=== PATIENT | female | born 1970 | race Caucasian/White ===

== ENCOUNTER → 2019-06-21 | Outpatient (CLI) | payer BC ==
--- NOTE | 2019-06-21 09:33 | MM ---
Reason for exam: clinical finding. History: Family history of breast cancer in aunt. Physical Findings: Nurse Summary: 10cm nodule in the right breast at 10-2 o'clock (nurse TM). MG 3D Diag Mammo W/Cad QUINCY Bilateral CC and MLO view(s) were taken. The breast tissue is heterogeneously dense. This may lower the sensitivity of mammography. There are heterogeneous calcifications of the upper central right breast spanning 3.1cm associated with a dense focal asymmetry at the palpable at middle posterior depth. No suspicious abnormality in the left breast. These results were verbally communicated with the patient and result sheet given to the patient on 06/21/19. ASSESSMENT: Incomplete: need additional imaging evaluation, BI-RAD 0 RECOMMENDATION: Ultrasound of both breasts. (right upper, left pain)
--- NOTE | 2019-06-21 09:38 | USB ---
History: Family history of breast cancer in aunt. US Breast Limited BILAT Right limited breast ultrasound including focal area of concern, retroareolar and axilla demonstrates a 0.6 x 0.4 x 0.3cm oval, lobular, cystic lesion at 12 o'clock, a 0.4 x 0.4 x 0.2cm oval, cystic lesion at 12 o'clock, a 2.2 x 1.2 x 3.8cm taller than wide, irregular, hypoechoic lesion at 12:30 BB, ill defined given surrounding dense tissue, better seen on mammogram, stereotactic core biopsy recommended, a 0.6 x 0.4 x 0.4cm oval, cystic lesion at 1 o'clock, a 0.4 x 0.5 x 0.2cm oval, cystic lesion at 2 o'clock, a 0.8 x 0.47 x 0.5cm oval, cystic cluster at 9 o'clock and a 1.5 x 1.3 x 0.8cm axilla node. Left limited breast ultrasound including focal area of concern, retroareolar and axilla demonstrates duct ectasia at 9 o'clock and a 0.4 x 0.4 x 0.3cm oval, cystic lesion at 11 o'clock. These results were verbally communicated with the patient and result sheet given to the patient on 06/21/19. ASSESSMENT: Highly suggestive of malignancy, BI-RAD 5 RECOMMENDATION: Stereotactic core biopsy of the right breast. Called Dr. Doyle's office with mammographic findings and has scheduled an appointment for the patient for 07/18/19 at 4:[address] French. Biopsy scheduled for 07/05/19 at 10:20. PRELIMINARY REPORT CALLED AND FAXED TO DR. FRENCH ON 06/21/19.
== END | disposition home or self-care (01) ==
LOC: RADMAMWWP 06:59
PROVIDERS: ATTEND Obstetrics & Gynecology
DX: N64.4 Mastodynia (principal); N63.12 Unspecified lump in the right breast, upper inner quadrant; R92.8 Other abnormal and inconclusive findings on diagnostic imaging of breast
CPT/HCPCS: 77062; 77066

== ENCOUNTER → 2019-07-06 | Outpatient (CLI) | payer BC ==
--- NOTE | 2019-07-23 13:00 | BMR ---
EXAMINATION TYPE: MR breast BILAT wo/w con DATE OF EXAM: 07/10/2019 COMPARISON: Outside right breast biopsy dated 06/28/2019 and right breast ultrasound as well as mammogr am dated 06/21/2019. HISTORY: Rt breast mass 10-12 o'clock TECHNIQUE: A series of fat and water weighted images in the long and short axis views of both breasts are obtained in conjunction with dynamic contrast MRI with subtraction technique. The patient was i njected with 5 mL intravenous Gadavist gadolinium contrast. Three-dimensional and additional postpr ocessing imaging is created on independent workstation and reviewed during official interpretation of this study. FINDINGS: The breasts are composed of heterogenous fibroglandular tissue with mild background parench ymal enhancement. There is abnormal both masslike and nonmasslike clumped enhancement within the right breast. Suscepti bility artifact from the biopsy-proven invasive ductal carcinoma the right breast is seen at the most cranial aspect of this mass. This mass measures 6.1 x 4.0 cm in transverse by anterior posterior dim ension involving the upper outer quadrant and upper inner quadrant on postcontrast first contrast pas sed series 701 image 338 axial fat sat T1 postcontrast sequence and extends inferiorly below the leve l of the nipple centrally to involve the lower outer quadrant and to a lesser degree the lower inner quadrant. There is clumped nonmass enhancement emanating anteriorly from the inferior aspect of this mass on image 302 measuring a total anterior posterior dimension of 5.1 cm. There is clumped posterio r enhancement of the upper outer quadrant extending 1.1 cm posterior to the primary index mass. There is no suspicious internal mammary adenopathy bilaterally however abnormal right axillary adenop athy is seen with a lymph node lateral to the pectoralis major on postcontrast image 380 measuring 1. 0 cm in short axis and lymph node just above this appears lobular in appearance on image 428 also lina suring 1.0 cm in short axis. No suspicious left axillary adenopathy. There is no suspicious mass nor nonmass enhancement in the left breast. Foci of background enhancemen t are appreciated. Scattered nonenhancing subcentimeter benign right breast cysts are also seen. IMPRESSION: BI-RADS [id number]-rdrqck malignancy. 1. Findings are highly suspicious for multicentric disease within the right breast with the largest t ransverse and anterior posterior dimensions measuring 6.1 x 4.0 cm (involvement of all 4 quadrants). Either second ultrasound-guided biopsy could be performed of the upper inner quadrant margin to patho logically prove multicentric disease or MRI guided biopsy could be performed pathologically prove ext ent of disease. 2. Suspicious right axillary adenopathy with at least 2 abnormal appearing lymph nodes adjacent to on e another at the lateral aspect of the pectoralis major inferior to the axillary artery and vein. 3. No MR evidence of malignancy within the left breast.
== END | disposition home or self-care (01) ==
LOC: RADMRIMAIN 17:39
PROVIDERS: ATTEND Surgery
DX: C50.911 Malignant neoplasm of unspecified site of right female breast (principal)
CPT/HCPCS: 77049; C8937; A9585

== ENCOUNTER → 2019-07-10 | Outpatient (CLI) | payer BC ==
--- NOTE | 2019-07-11 11:01 | ECHOF ---
Referral Reason:Z01.818 pre-chemo C50.111 breast cancer MEASUREMENTS -------- HEIGHT: 147.3 cm WEIGHT: 49.9 kg BP: RVIDd: 2.7 cm (< 3.3) IVSd: 0.9 cm (0.6 - 1.1) LVIDd: 4.0 cm (3.9 - 5.3) LVPWd: 0.8 cm (0.6 - 1.1) IVSs: 1.2 cm LVIDs: 2.5 cm LVPWs: 1.3 cm LAESV Index (A-L): 19.50 ml/m Ao Diam: 2.8 cm (2.0 - 3.7) AV Cusp: 1.9 cm (1.5 - 2.6) MV EXCURSION: 15.098 mm (> 18.000) MV EF SLOPE: 121 mm/s (70 - 150) EPSS: 0.1 cm MV E Fazal: 0.82 m/s MV DecT: 260 ms MV A Fazal: 0.57 m/s MV E/A Ratio: 1.42 FINDINGS -------- Sinus rhythm. This was a technically good study. The left ventricular size is normal. Left ventricular wall thickness is normal. There is normal g lobal left ventricular contractility. Overall left ventricular systolic function is normal with, an EF between 60 - 65 %. The diastolic filling pattern is normal for the age of the patient 7.92. The right ventricle is normal in size. Normal LA size by volume 22+/-6 ml/m2. The right atrial size is normal. Interatrial and interventricular septum intact. The aortic valve is trileaflet and appears structurally normal. There is no evidence of aortic regu rgitation. There is no evidence of aortic stenosis. No mitral regurgitation. Mild tricuspid regurgitation present. There is no evidence of pulmonary hypertension. The right v entricular systolic pressure, as measured by Doppler, is {RVSP}. Trace/mild (physiologic) pulmonic regurgitation. The aortic root size is normal. Normal inferior vena cava with normal inspiratory collapse consistent with estimated right atrial pre ssure of 5 mmHg. There is no pericardial effusion. CONCLUSIONS -------- 1. Sinus rhythm. 2. This was a technically good study. 3. The left ventricular size is normal. 4. Left ventricular wall thickness is normal. 5. There is normal global left ventricular contractility. 6. Overall left ventricular systolic function is normal with, an EF between 60 - 65 %. 7. The diastolic filling pattern is normal for the age of the patient 7.92 8. The right ventricle is normal in size. 9. Normal LA size by volume 22+/-6 ml/m2. 10. The right atrial size is normal. 11. Interatrial and interventricular septum intact. 12. The aortic valve is trileaflet and appears structurally normal. 13. There is no evidence of aortic regurgitation. 14. There is no evidence of aortic stenosis. 15. No mitral regurgitation. 16. Mild tricuspid regurgitation present. 17. There is no evidence of pulmonary hypertension. 18. The right ventricular systolic pressure, as measured by Doppler, is {RVSP}. 19. Trace/mild (physiologic) pulmonic regurgitation. 20. The aortic root size is normal. 21. Normal inferior vena cava with normal inspiratory collapse consistent with estimated right atrial pressure of 5 mmHg. 22. There is no pericardial effusion. SCOOP FILLER: Sangeeta Schroeder RDCS
== END | disposition home or self-care (01) ==
LOC: RADECHMAIN 15:02
PROVIDERS: ATTEND Internal Medicine Hematology & Oncology
DX: I07.1 Rheumatic tricuspid insufficiency (principal); C50.111 Malignant neoplasm of central portion of right female breast
CPT/HCPCS: 93306

== ENCOUNTER → 2019-11-05 | Outpatient (CLI) | payer BC ==
[2019-11-05 10:10] LABS: African American GFR (CKD) >90 (>60 ml/min/1.73 sqM); Blood Urea Nitrogen 16 mg/dL (7-17); Non-African American GFR(CKD) >90 (>60 ml/min/1.73 sqM)
--- NOTE | 2019-11-05 12:18 | CT ---
EXAMINATION TYPE: CT ChestAbdPelvis w con DATE OF EXAM: 11/05/2019 COMPARISON: MRI bilateral breasts July 06, 2019. HISTORY: History of right-sided breast cancer diagnosed earlier this year. CT DLP: 409.3 mGycm. Automated Exposure Control for Dose Reduction was Utilized. CONTRAST: CT scan of the thorax, abdomen and pelvis is performed with IV Contrast, patient injected with 100 mL of Isovue 300. FINDINGS: LUNGS: The lungs are grossly clear, there is no concerning parenchymal mass or nodule identified. T here is no pleural effusion or pneumothorax seen. The tracheobronchial tree is patent. MEDIASTINUM: There are no greater than 1 cm hilar or mediastinal lymph nodes. No cardiomegaly or pe ricardial effusion is seen. OTHER: There is left internal jugular Mediport catheter terminating in the right atrium. Heterogeneou sly dense fibroglandular tissue in both breasts redemonstrated. Superior aspect of right breast shows more dense tissue and biopsy clip corresponding to the area of neoplasm on breast MRI. No obvious ax illary adenopathy. LIVER/GB: Somewhat contracted gallbladder. PANCREAS: No significant abnormality is seen. SPLEEN: No significant abnormality is seen. ADRENALS: No significant abnormality is seen. KIDNEYS: No significant abnormality is seen. BOWEL: No significant abnormality is seen. GENITAL ORGANS: Anteverted somewhat lobulated uterus. Possible underlying fibroids. Correlate clinica lly. LYMPH NODES: No greater than 1cm abdominal or pelvic lymph nodes are appreciated. OSSEOUS STRUCTURES: No significant abnormality is seen. OTHER: Small fat-containing umbilical hernia. IMPRESSION: Known multicentric upper right breast mass or neoplasm seen better on MRI versus CT. No metastatic malignancy identified on CT.
--- NOTE | 2019-11-05 15:00 | NM ---
EXAMINATION TYPE: NM bone scan whole body DATE OF EXAM: 11/05/2019 COMPARISON: CT same day HISTORY: 49-year-old female history of breast cancer. Patient reports all over bone pain. TECHNIQUE: Delayed whole-body scanning was performed following the injection of 21 mCi Tc 99m MDP. I mages acquired 4 hours post injection. FINDINGS: A few foci of mildly increased activity within the posterior elements of the cervical spine compatibl e with degenerative activity. No suspicious distribution of activity to suggest osseous metastatic di sease. IMPRESSION: No scintigraphic evidence for osseous metastatic disease.
== END | disposition home or self-care (01) ==
LOC: RADPROMAIN 09:24
PROVIDERS: ATTEND Internal Medicine Hematology & Oncology
DX: C50.111 Malignant neoplasm of central portion of right female breast (principal)
CPT/HCPCS: 82565; 84520; 71260; 74177; 78306; A9503; J1642; Q9967

== ENCOUNTER 2019-12-28 06:22 | Observation (INO) | payer BC ==
[2019-12-24 13:11] VITALS: BMI 22.3
[~2019-12-28 06:22] MED LIST: ACETAMINOPHEN TAB 500 MG TAB PO ONE; DEXAMETHASONE SOD PHOSPHATE 10 MG/ML 1 ML VIAL IV ONE; HEPARIN SODIUM,PORCINE 5,000 UNIT/ML 1 ML VIAL SQ ONE; LIDOCAINE 1% (10MG/ML) FOR IV START INTRADERMA PRN; ONDANSETRON 4 MG/2 ML VIAL IVP ONE; Pre Op ABX Message 1 EACH MISC MISCELLANE ONE
[2019-12-28] MEDS ORDERED: ACETAMINOPHEN TAB 500 MG TAB ONE (06:44)
[2019-12-28] MEDS ORDERED: ONDANSETRON 4 MG/2 ML VIAL ONE (06:44)
[2019-12-28] MEDS ORDERED: HEPARIN SODIUM,PORCINE 5,000 UNIT/ML 1 ML VIAL ONE (06:52)
[2019-12-28] MEDS: HEPARIN SODIUM,PORCINE 5,000 UNIT/ML 1 ML VIAL ONE ×2 (07:00→07:04)
[2019-12-28] MEDS: LACTATED RINGERS 1,000 ML IV SCH ×2 (07:03→14:41)
[2019-12-28] MEDS ORDERED: MIDAZOLAM 2 MG/2 ML VIAL IV ONE (07:04)
[2019-12-28 07:07] LABS: Basophils % (A) 1 %; Eosinophils # (A) 0.2 k/uL (0-0.7); Eosinophils % (A) 4 %; HCT 45.6 % (34.0-46.0); HGB 14.9 gm/dL (11.4-16.0); Lymphocytes # (A) 1.1 k/uL (1.0-4.8); Lymphocytes % (A) 27 %; MCH 30.5 pg (25.0-35.0); MCHC 32.6 g/dL (31.0-37.0); MCV 93.5 fL (80.0-100.0); Mean Platelet Volume 7.3; Monocytes # (A) 0.3 k/uL (0-1.0); Monocytes % (A) 7 %; Neutrophils # (A) 2.3 k/uL (1.3-7.7); Neutrophils % (A) 59 %; Platelet Count 267 k/uL (150-450); RBC 4.88 m/uL (3.80-5.40); RDW 12.4 % (11.5-15.5)
[2019-12-28] MEDS ORDERED: PHENYLEPHRINE-0.9% NACL SYG 1 MG/10 ML SYRINGE ONE (07:55)
[2019-12-28] MEDS ORDERED: PROPOFOL 10 MG/ML 20 ML VIAL IV ONE (07:55)
[2019-12-28] MEDS ORDERED: MIDAZOLAM 2 MG/2 ML VIAL ONE (07:55)
[2019-12-28] MEDS ORDERED: LIDOCAINE 1% INJ 10MG/ML (20 ML MDV) ONE (07:55)
[2019-12-28] MEDS ORDERED: fentaNYL (PF) 50 MCG/ML 2 ML AMP ONE (07:55)
[2019-12-28] MEDS ORDERED: SUCCINYLCHOLINE CHLORIDE 100 MG/5 ML SYR IV ONE (07:55)
--- NOTE | 2019-12-28 07:59 | P.GSHP ---
History of Present Illness H&P Date: 12/28/19 Chief Complaint: Right breast cancer 49-year-old female known to our service. 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 She is ER MD positive HER-2/danyel negative. MRI showed suspicious lymph nodes for metastatic disease in the right axilla as well as probable multicentric disease with the mass measuring 6.1 cm. Additional abnormalities involving all 4 quadrants were seen. Patient had genetic testing which was negative. She underwent bone scan and CT chest abdomen and pelvis which were negative. She underwent neoadjuvant chemotherapy and recently completed that course. Here today for elective right mastectomy with axillary node dissection and reconstruction. Past Medical History Past Medical History: Cancer, GERD/Reflux Additional Past Medical History / Comment(s): migraines, rt breast cancer- finished chemo September 2019 History of Any Multi-Drug Resistant Organisms: None Reported Past Surgical History: Breast Surgery Additional Past Surgical History / Comment(s): d&c, rt breast biopsy, port inserted, oral surgery Past Anesthesia/Blood Transfusion Reactions: No Reported Reaction Smoking Status: Current every day smoker - Past Family History Mother Family Medical History: No Reported History Medications and Allergies Home Medications Medication Instructions Recorded Confirmed Type Escitalopram [Lexapro] 10 mg PO 1500 12/24/19 12/28/19 History LORazepam [Ativan] 0.5 mg PO HS 12/24/19 12/28/19 History Peppermint Oil Drops 1 - 2 drop PO DIRECTED PRN 12/24/19 12/28/19 History traMADol HCL 50 mg PO Q6HR PRN 12/24/19 12/28/19 History Allergies Allergy/AdvReac Type Severity Reaction Status Date / Time No Known Allergies Allergy Verified 12/24/19 13:00 Surgical - Exam Vital Signs Temp Pulse Resp BP Pulse Ox 97 F L 70 16 148/74 98 12/28/19 07:02 12/28/19 07:02 12/28/19 07:02 12/28/19 07:02 12/28/19 07:02 Physical exam: General: Well-developed, well-nourished HEENT: Normocephalic, sclerae nonicteric Right breast: No palpable masses any longer, no adenopathy, no skin changes. Left breast: No masses, no adenopathy Abdomen: Nontender, nondistended Extremities: No edema Neuro: Alert and oriented Results - Labs 12/28/19 06:56 Assessment and Plan (1) Cancer of right breast Narrative/Plan: Patient here today again for elective right skin sparing mastectomy with axillary node dissection. Patient will have concurrent reconstruction with Dr. Mariano. Options of bilateral mastectomy were reviewed. Patient not a candidate for breast conservation in our opinion. Risks of bleeding, infection, wound formation, scarring, numbness, pain, seroma, lymphedema, nerve injury, weakness, recurrence reviewed. She understands and wishes to proceed Current Visit: No Status: Acute Code(s): C50.911 - MALIGNANT NEOPLASM OF U NSP SITE OF RIGHT FEMALE BREAST SNOMED Code(s): 975267304
--- NOTE | 2019-12-28 08:00 | P.NAPBC ---
NAPBC Queries - NAPBC Queries Was patient's case review presented at [facility] tumor board? If no, comment.: Yes Was patient's pathology reviewed at [facility]? If no, comment.: Yes Was breast conservation surgery offered? If no, comment.: No (Was discussed, multicentric disease, not a candidate) Was sentinel node biopsy offered? If no, comment.: No (Was discussed, oncology and I favor axillary node dissection given MRI find) Was diagnosis confirmed by percutaneous core biopsy? If no, comment.: Yes Is patient mastectomy patient?: Yes Was a preop referral to reconstructive surgeon offered?: Yes Clinical Stage: 3a
[2019-12-28] MEDS ORDERED: LACTATED RINGERS 1,000 ML IV ONE ×2 (08:56)
[2019-12-28] MEDS ORDERED: NALOXONE 0.4 MG/ML 1 ML VIAL IV PRN (10:20)
[2019-12-28] MEDS ORDERED: ACETAMINOPHEN TAB 325 MG TAB PO PRN (10:20)
--- NOTE | 2019-12-28 10:27 | P.OP ---
Date of Procedure: 12/28/19 Procedure(s) Performed: PREOPERATIVE DIAGNOSIS: Right breast cancer POSTOPERATIVE DIAGNOSIS: Same PROCEDURE: Somers breast mastectomy with axillary lymph node dissection SURGEON: Claude EBL: Minimal ANESTHESIA: General COMPLICATIONS: None OPERATIVE PROCEDURE: Patient was placed on the operating room table in the supine position. Using the skin marker the proposed incision sites were drawn out on the chest wall. A circular incision was made encompassing the nipple areolar complex. Flaps were raised in all directions until the chest wall was reached. Care was taken to avoid having our skin flap be too thin/ischemic. Once the chest wall was reached the breast was removed from the chest wall using electrocautery. Multiple vessels were divided using either electrocautery or the LigaSure device. Through that same circular periareolar incision we were able to address the right axilla. A formal right axillary lymph node dissection took place at this time. The deltopectoral fascia had already been incised. The course of the right axillary vein was identified. The axillary contents were swept inferiorly from that point taking care to avoid injury to the long thoracic and thoracodorsal nerves. Small vessels were ligated using the LigaSure device. No suspicious adenopathy was encountered. The area was irrigated. No bleeding was seen. At that point formal closure was passed off to Dr. Mariano. At this point he began his reconstructive surgery. DISPOSITION: Stable
[2019-12-28] MEDS: HYDROmorphone 0.5 MG/0.5 ML SYRINGE IVP PRN ×6 (11:39→20:57)
[2019-12-28] MEDS: ONDANSETRON 4 MG/2 ML VIAL IVP PRN ×2 (14:30→23:37)
[2019-12-28] MEDS: traMADol 50 MG TAB PO PRN ×2 (14:43→23:37)
[2019-12-28] MEDS ORDERED: ESCITALOPRAM 10 MG TAB PO SCH (15:30)
[2019-12-28] MEDS: LORazepam 0.5 MG TAB PO PRN (15:35)
--- NOTE | 2019-12-28 16:57 | OP ---
OPERATIVE REPORT DATE OF SURGERY: 12/28/2019. SURGEON: Yaron Mariano. PREOPERATIVE DIAGNOSIS: 1. Invasive breast cancer, right breast. 2. Acquired loss right breast. POSTOPERATIVE DIAGNOSIS: 1. Invasive breast cancer, right breast. 2. Acquired loss right breast. OPERATIVE PROCEDURE: Immediate reconstruction of right breast following mastectomy with insertion of tissue direct support staff and subsequent outpatient expansion. OPERATIVE INDICATIONS: The patient is a 49-year-old female who had a palpable breast tumor. The patient's diagnostic biopsy demonstrated invasive breast cancer. She had neoadjuvant care chemotherapy, was then referred to my care for breast reconstruction and she had plans to undergo mastectomy. The patient has elected to proceed with breast reconstruction via tissue direct support staff technique. She understands the staged nature of the surgery, required postoperative visits and potential risks and complications related to the surgery. Additionally, the patient is aware she has a high likelihood of requiring radiation therapy and this could affect her reconstruction process and add to complications. The patient requested I proceed with the surgery today. OPERATIVE PROCEDURE: The patient is seen in the preoperative area, markings made, procedure reviewed. All questions answered, including a lengthy discussion with the patient about the use of reconstructive graft with the surgery. During the preoperative planning is was mentioned that sometimes this is required, although not for all surgeries. Unfortunately, the patient's insurance carrier reviews this as experimental procedure and will not provide coverage. The patient is fully aware of this including the cost of the product in the surgical fee associated with implantation of the product should it be needed. They have requested that if I deem it necessary for her reconstruction, that I proceed with the use of the graft despite the added financial cost to them. They understand they have the right to appeal this with their insurance company and I will be available to assist with information as needed. OPERATIVE PROCEDURE SUMMARY: The patient was transferred to the operating room. She was placed in supine position following induction of general tracheal anesthesia. She was prepped and draped in the usual fashion. A surgical time-out procedure was performed. with myself and Dr. Arce our cancer surgeon. Dr. Arce and his surgical team then proceeded with the right simple mastectomy and right axillary lymph node dissection. Once these procedures were completed, I entered the surgery. The patient was under general endotracheal anesthesia in supine position. Sponge and needle counts in prior procedure were correct. The mastectomy wound was open with no active bleeding. The right breast reconstruction was initiated by identifying the pectorals major muscle where it joined the chest wall laterally with serial connective tissue divided with cautery here allowing entry into the potential plane between the pectorals major and minor muscles were bluntly developed. Medial attachment fibers of the pectorals major muscle to ribs were released with cautery and all inferior attachments to the ribs were released with cautery. Sternal attachments remained intact. Sufficient muscle coverage was not possible with the pectorals major muscle. Additional muscle tissue was recruited inferomedially, rectus abdominis muscle and fascia inferolaterally, external abdominal oblique muscle fascia and laterally serratus anterior muscle fascia were all elevated through this incision until sufficient submuscular space for reconstruction was completed. Hemostasis maintained with cautery during the dissection. Afterwards, irrigation was performed. Hemostasis was excellent. The cavity was sized. A tissue direct support staff from the [employer] was selected and opened on the field. The reference number was TEXP 110RH, the volume of 300 mL, serial #[id number]. New gloves were obtained. The device was only handled by the surgeon. After opening, it is rinsed with saline, all air extracted and 50 mL 0.9 normal saline instilled. The reconstructive graft was then inserted into the submuscular reconstructive cavity, orientation ensured under direct vision. The muscle tissue was closed over the flap. Additional 25 mL 0.9 normal saline instilled into the direct support staff. Irrigation is performed, hemostasis remained excellent. Two 19 round Kiel drains were inserted into the surgical field, one in the axillary lymph node dissection basin and the other under the mastectomy skin flaps, over the muscle flap area. Each drains brought a separate stab incision right anterior lower chest wall and sutured in place with 2-0 Prolene. Drains were cut to appropriate length. The mastectomy incision had been performed through a circumareolar approach. The closure was now completed by placing a deep dermal running 2-0 Prolene pursestring, followed by finer approximation. The deep dermis using interrupted 4-0 Monocryl. Surgical field was then cleansed with saline dried and postoperative bandages were placed using 4x4s, secured with 3 Medipore tape. The drains were connected to bulb suction and patent. The patient was then awakened from anesthetic, extubated, transferred to recovery room in good condition with stable vital signs. ESTIMATED BLOOD LOSS: 50 mL. There were no complications. MMODL / IJN: [id number] /
[2019-12-28] MEDS: DOCUSATE 100 MG CAP PO SCH (20:47)
[2019-12-28] MEDS: FLUTICASONE 50MCG/SPRAY NASAL 16GM EA NOSTRIL SCH (20:48)
[2019-12-28] MEDS: HEPARIN SODIUM,PORCINE 5,000 UNIT/ML 1 ML VIAL SQ SCH (20:49)
[2019-12-29] MEDS: HYDROmorphone 0.5 MG/0.5 ML SYRINGE IVP PRN ×5 (01:15→20:57)
[2019-12-29] MEDS: traMADol 50 MG TAB PO PRN (06:14)
[2019-12-29] MEDS: ONDANSETRON 4 MG/2 ML VIAL IVP PRN (07:34)
[2019-12-29] MEDS: PANTOPRAZOLE 40 MG/10 ML VIAL IV SCH (09:06)
[2019-12-29] MEDS: HEPARIN SODIUM,PORCINE 5,000 UNIT/ML 1 ML VIAL SQ SCH ×2 (09:07→20:56)
[2019-12-29] MEDS: DOCUSATE 100 MG CAP PO SCH ×3 (09:08→20:56)
[2019-12-29] MEDS ORDERED: BACITRACIN OINT 1 EACH PACKET TOPICAL ONE (11:07)
--- NOTE | 2019-12-29 11:07 | P.PN ---
Subjective Progress Note Date: 12/29/19 Principal diagnosis: Right breast cancer Patient doing well today. Pain is improving. Some nausea. Tolerating diet. Drain output is serosanguineous. Objective - Vital Signs Vital signs: Vital Signs Temp 98.4 F 12/29/19 07:32 Pulse 89 12/29/19 07:32 Resp 18 12/29/19 07:32 BP 101/56 12/29/19 07:32 Pulse Ox 95 12/29/19 07:32 Intake & Output 12/28/19 12/29/19 12/29/19 18:59 06:59 18:59 Intake Total 1850 2000 Output Total 480 2360 1110 Balance 1370 -360 -1110 Weight 43.8 kg Intake: IV 1850 Intake, IV Titration 1000 Amount Lactated Ringers 1,000 ml 1000 @ 0 mls/hr IV .[facility] Rx#:[id number] Oral 1000 Output: Drainage 55 160 60 Drain #1 40 90 30 Drain #2 15 70 30 Urine 375 2200 1050 Estimated Blood Loss 50 Other: Voiding Method Toilet - Exam Right mastectomy incision clean and dry without ischemia, no hematoma, mild tenderness - Labs CBC & Chem 7: 12/28/19 06:56 Assessment and Plan (1) Cancer of right breast Narrative/Plan: Patient doing well at this time. Add Toradol for pain control. Change dressings. Current Visit: No Status: Acute Code(s): C50.911 - MALIGNANT NEOPLASM OF UNSP SITE OF RIGHT FEMALE BREAST SNOMED Code(s): 885000601
[2019-12-29] MEDS ORDERED: ONDANSETRON 4 MG/2 ML VIAL IVP PRN (11:08)
[2019-12-29] MEDS: KETOROLAC 30 MG/ML 1 ML VIAL IVP SCH ×3 (11:57→23:59)
[2019-12-29] MEDS ORDERED: ESCITALOPRAM 10 MG TAB PO SCH (15:00)
[2019-12-29] MEDS: LACTATED RINGERS 1,000 ML IV SCH (18:13)
[2019-12-29] MEDS: LORazepam 0.5 MG TAB PO PRN (18:26)
[2019-12-29] MEDS: FLUTICASONE 50MCG/SPRAY NASAL 16GM EA NOSTRIL SCH (20:56)
[2019-12-30 00:11] VITALS: RESP 18
[2019-12-30] MEDS: KETOROLAC 30 MG/ML 1 ML VIAL IVP SCH ×2 (06:10→11:41)
[2019-12-30] MEDS: HEPARIN SODIUM,PORCINE 5,000 UNIT/ML 1 ML VIAL SQ SCH (08:17)
[2019-12-30] MEDS: PANTOPRAZOLE 40 MG/10 ML VIAL IV SCH (08:17)
[2019-12-30] MEDS: traMADol 50 MG TAB PO PRN (08:33)
[2019-12-30 08:49] VITALS: BP 100/66; PULSE 71; TEMP 98.6
[2019-12-30] MEDS: DOCUSATE 100 MG CAP PO SCH (09:29)
--- NOTE | 2019-12-30 11:26 | P.DS ---
Providers Date of admission: 12/28/19 22:55 Expected date of discharge: 12/30/19 Attending physician: Yaron Mariano Primary care physician: Ja Arce - Discharge Diagnosis(es) (1) Cancer of right breast Patient admitted after right mastectomy with reconstruction Tuesday. Postoperatively has done well. Pain has been the biggest issue which is being fairly well controlled currently. Her SRIKANTH drain output is serosanguineous. She would like to go home today. Incision is doing nicely. Will discharge. Follow-up with myself and plastic surgery later this week. Current Visit: No Status: Acute Plan - Discharge Summary Discharge Rx Participant: Yes New Discharge Prescriptions: No Action traMADol HCL 50 mg PO Q6HR PRN PRN Reason: Pain LORazepam [Ativan] 0.5 mg PO HS Escitalopram [Lexapro] 10 mg PO 1500 Peppermint Oil Drops 1 - 2 drop PO DIRECTED PRN PRN Reason: upset stomach Fluticasone Nasal [place] [Flonase Nasal [place]lig[place]] 1 spray EA NOSTRIL DAILY Discharge Medication List Escitalopram [Lexapro] 10 mg PO 1500 12/24/19 [History] LORazepam [Ativan] 0.5 mg PO HS 12/24/19 [History] Peppermint Oil Drops 1 - 2 drop PO DIRECTED PRN 12/24/19 [History] traMADol HCL 50 mg PO Q6HR PRN 12/24/19 [History] Fluticasone Nasal [place] [Flonase Nasal [place]lig[place]] 1 spray EA NOSTRIL DAILY 12/28/19 [History] Follow up Appointment(s)/Referral(s): Ja Arce MD [Primary Care Provider] - 3 Days (call for appt for Tuesday or Tuesday) Yaron Mariano MD [STAFF PHYSICIAN] - 1 Week [facility], [NON-STAFF] - Activity/Diet/Wound Care/Special Instructions: Regular diet as tolerated. drink fluids. Limited activity with rt arm. no heavy lifting pushing or pulling. No showers or tub baths until ok with Dr Arce. Alternate Over the counter tylenol and Motrin every [address] discussed [address] Arce. Tramadol per home as needed as discussed with Dr Arce empty drains as needed to maintain suction. see Srikanth drain care sheet. record output as directed. Call Dr Arce for any fever > 100.4, chills, increased pain not relieved with pain meds, sudden increase or concerning drainage from drains.increased redness or discolored drainage from incision site,any concerns. Last received Tramadol at 0830. Last received toradol (same family as Advil/Motrin) at
== END 2019-12-30 12:10 | disposition home or self-care (01) ==
LOC: OR 06:22 → 6PED 10:59 → OR 22:02 → 6PED 22:55
PROVIDERS: ADMIT Plastic Surgery; ATTEND Plastic Surgery
DX: C50.911 Malignant neoplasm of unspecified site of right female breast (principal); C77.3 Secondary and unspecified malignant neoplasm of axilla and upper limb lymph nodes; F17.200 Nicotine dependence, unspecified, uncomplicated; Z17.0 Estrogen receptor positive status [ER+]; K21.9 Gastro-esophageal reflux disease without esophagitis; G43.909 Migraine, unspecified, not intractable, without status migrainosus; Z92.21 Personal history of antineoplastic chemotherapy; Z79.899 Other long term (current) drug therapy
CPT/HCPCS: 81025; 85025; 88342; 88309; 19307; 19357; G0378 ×3; J2250; J1644 ×3; J1100; J0690; J2405 ×2; J2001; J3010; J1885 ×2; J2370; J0330; J2704; C9113 ×2; J1170 ×2

== ENCOUNTER 2020-11-12 09:42 | Day surgery (SDC) | payer BC ==
[2020-11-07 14:47] VITALS: BMI 20.3
[~2020-11-12 09:42] MED LIST changes: -ACETAMINOPHEN TAB 500 MG TAB PO ONE; -DEXAMETHASONE SOD PHOSPHATE 10 MG/ML 1 ML VIAL IV ONE; +DEXAMETHASONE SOD PHOSPHATE 4 MG/ML 1 ML VIAL IV ONE; -HEPARIN SODIUM,PORCINE 5,000 UNIT/ML 1 ML VIAL SQ ONE; +LACTATED RINGERS 1,000 ML IV SCH; -Pre Op ABX Message 1 EACH MISC MISCELLANE ONE; +SCOPOLAMINE 1.5MG/72HR PATCH TRANSDERM ONE
[2020-11-12 11:13] LABS: Basophils % (A) 0 %; Eosinophils # (A) 0.2 k/uL (0-0.7); Eosinophils % (A) 3 %; HCT 43.7 % (34.0-46.0); HGB 14.9 gm/dL (11.4-16.0); Lymphocytes % (A) 11 %; MCH 31.4 pg (25.0-35.0); MCV 92.3 fL (80.0-100.0); Mean Platelet Volume 6.9; Monocytes # (A) 0.3 k/uL (0-1.0); Monocytes % (A) 4 %; Neutrophils # (A) 7.2 k/uL (1.3-7.7); Neutrophils % (A) 81 %; Platelet Count 261 k/uL (150-450); RBC 4.74 m/uL (3.80-5.40); RDW 12.5 % (11.5-15.5); WBC 8.9 k/uL (3.8-10.6)
[2020-11-12] MEDS ORDERED: fentaNYL (PF) 50 MCG/ML 2 ML AMP ONE (11:52)
[2020-11-12] MEDS ORDERED: SUCCINYLCHOLINE CHLORIDE 100 MG/5 ML SYR IV ONE (11:52)
[2020-11-12] MEDS ORDERED: HYDROmorphone (PF) 1 MG/ML ONE (11:52)
[2020-11-12] MEDS ORDERED: LIDOCAINE 1% INJ 10MG/ML (20 ML MDV) ONE (11:52)
[2020-11-12] MEDS ORDERED: PROPOFOL 10 MG/ML 20 ML VIAL IV ONE (11:52)
[2020-11-12] MEDS ORDERED: MIDAZOLAM 2 MG/2 ML VIAL ONE (11:52)
[2020-11-12] MEDS ORDERED: ePHEDrine SULFATE/0.9% NACL/PF 50 MG/5 ML SYRINGE IV ONE (11:52)
[2020-11-12] MEDS ORDERED: LACTATED RINGERS 1,000 ML IV ONE (13:00)
[2020-11-12 14:01] VITALS: TEMP 98.6
[2020-11-12 14:02] VITALS: RESP 16
[2020-11-12] MEDS: HYDROmorphone 0.5 MG/0.5 ML SYRINGE IVP PRN ×3 (14:20→14:38)
--- NOTE | 2020-11-12 14:26 | OP ---
OPERATIVE REPORT DATE OF SURGERY: November 12, 2020. SURGEON: Yaron Mariano. PREOPERATIVE DIAGNOSES: 1. Acquired loss right breast. 2. Personal history of right breast cancer. 3. Acquired deformity right reconstructed breast. 4. Acquired loss right breast inframammary fold. POSTOPERATIVE DIAGNOSES: 1. Acquired loss right breast. 2. Personal history of breast cancer. 3. Acquired deformity right reconstructed breast. 4. Acquired loss right breast inframammary fold. OPERATIVE PROCEDURES: 1. Replace right breast tissue cheese processor with silicone breast implant for right breast reconstruction. 2. Revision of right reconstructed breast. 3. Reconstruction of right breast inframammary fold via local advancement flap, 32 square cm. 4. Remove left upper chest wall venous access device. OPERATIVE INDICATIONS: Patient is a 50-year-old female who has undergone right mastectomy for treatment of breast cancer. She also had immediate reconstruction initiated with placement of tissue cheese processor. The patient required chemotherapy as part of her cancer treatment as well as through left upper chest wall venous access device. The patient has completed expansion and is ready for 2nd stage of breast reconstruction. The patient desires removal of her venous access device in left upper chest wall is no longer is required and this has been confirmed with her oncologist as well as the general surgeon. The patient has requested that I remove this device. In addition today, the patient will undergo replacement of her tissue cheese processor and revision of her reconstructed breast as there is significant contour irregularities from her prior mastectomy, healing and expansion processes. The patient also lost right inframammary fold which will be reconstructed via local advancement flap. The patient is aware of potential risks and complications related to the surgery and has requested that I perform the surgery today. OPERATIVE PROCEDURE SUMMARY: The patient is seen in the preoperative area, markings made. Procedure reviewed. All questions answered. She is transported to the operative room where she was placed in supine position. Following induction of general endotracheal anesthesia, the patient is prepped and draped in the usual fashion and surgery is initiated on the right side for the breast reconstruction. Transverse diagrams drawn for incision and then over the mastectomy scar area an elliptical portion of mastectomy scar was excised and sent to pathology. This was done with all 10 blade scalpel and cauterization was used to divide subcutaneous tissue until identifying the muscle flap surface and then skin subcutaneous tissue flaps elevated off the muscle flap tissue. Extensive dissection was required as there was significant scar tissue here as well as contour irregularities. Once this was completed, incision was made through the inferior portion of the muscle flap reconstructive graft area in a transverse fashion exposing the cheese processor. The cheese processor was removed intact. The expansion cavity was normal. Clear shiny membranes with small amount of serous fluid. No granulation tissue. No exudates. A complete capsulotomy incision was made where the capsule joined the chest wall and then multiple cruciate incisions through the capsular structure to release this tightness. Additionally, further dissection is required medially and superior medially to release the thickened firmly scarred muscle flap tissues to allow for optimizing her reconstructive result. Once this was completed, irrigations performed. Hemostasis maintained with cautery. Excellent hemostasis was present. Right breast inframammary fold was now reconstructed through the capsulotomy incision in the area elevating skin and subcutaneous tissue flap with cauterization to maintain hemostasis with cautery while elevating the flap. The fold measured 16 cm transversely with 2 cm vertically. Once created, it was advanced in cephalad fashion and secured to the chest wall, rib periosteal tissues and thickened expansion tissues in several discrete locations using interrupted 2-0 Vicryl sutures. With the inframammary fold set, additional irrigation is performed. Hemostasis was optimal. Temporary breast implant Sizer was opened on the field. Ultimately, a 265 mL breast implant Sizer appeared best. Evaluated the patient in a seated up position and incision temporary closed with tremaine. The patient is returned to supine position. Cadogan removed. Irrigation performed, hemostasis was excellent. Gloves now changed and the breast implant opened on the field. Breast implant was from the Natrelle inspire soft touch breast implant line from [employer], reference number [id number] #[id number]. The implant was only handled by surgeons and inserted directly in the reconstructive cavity. The muscle flap tissue was advanced over the implant and the muscle flap tissue was inset using interrupted 3- 0 Vicryl sutures. Complete coverage was obtained. The incision was now closed approximating deep dermis using inverted interrupted 4-0 Monocryl and completing the skin closure with running 5-0 Prolene. Surgical alvarado cleansed with saline, dried and one inch sterile paper tape placed over the suture repair. Attention was turned toward the left upper chest. A venous access device had been placed through a transverse incision. The incision was made over this following the scar present, dividing skin full-thickness fashion, 10 blade scalpel and using cauterization to divide subcutaneous tissue and scar tissue until identifying the device. Careful dissection was performed with cauterization and scissors around the device, releasing the scar tissue and suture secure points. Once this was completed, the port to the venous access device was removed from its cavity and then the entire device removed ensuring the tip was obtained. The device was discarded per protocol. The open left upper chest wall wound was irrigated. Hemostasis maintained with cautery. The incision was closed, approximated Kellie's fascial area using inverted interrupted 3-0 Vicryl and then approximated deep dermis using inverted interrupted 4-0 Monocryl and completing skin closure with subcuticular 5-0 Prolene followed by cleansing and placement of 1 inch sterile paper tape. A size 2 mammary support was positioned after 1st placing additional gauze padding over the incision sites and secured with paper tape. The patient was then awakened from anesthetic, extubated, and transferred to recovery room in good condition with stable vital signs. ESTIMATED BLOOD LOSS: 35 mL. There were no complications. MMODL / IJN: [id number] /
[2020-11-12 15:16] VITALS: BP 134/76; PULSE 85
[2020-11-12] MEDS ORDERED: HYDROcodone/APAP 5-325MG 1 EACH TAB ONE (15:16)
[2020-11-12] MEDS ORDERED: HYDROcodone/APAP 5-325MG 1 EACH TAB PO ONE (15:17)
== END 2020-11-12 16:01 | disposition home or self-care (01) ==
LOC: OR 09:42
PROVIDERS: ATTEND Plastic Surgery
DX: N65.0 Deformity of reconstructed breast (principal); Z90.11 Acquired absence of right breast and nipple; Z85.3 Personal history of malignant neoplasm of breast; F32.9 Major depressive disorder, single episode, unspecified; K21.9 Gastro-esophageal reflux disease without esophagitis; Z79.811 Long term (current) use of aromatase inhibitors; Z79.891 Long term (current) use of opiate analgesic; Z79.899 Other long term (current) drug therapy
CPT/HCPCS: 14301; 11970; 36590; 15777; 19380; 88305; 85025; C1789; J2250; J1100; J0690; J2405; J2001; J3010; J1170 ×2; J0330; J2704

== ENCOUNTER → 2021-01-01 | Outpatient (CLI) | payer BC ==
--- NOTE | 2021-01-01 14:53 | MM ---
Reason for exam: additional evaluation requested from prior study. Last mammogram was performed 1 year and 6 months ago. History: Patient has history of breast cancer at age 48. Family history of breast cancer in aunt. Taking antineoplastic. Physical Findings: Nurse Summary: 0.5cm nodule in the left breast at 1-2 o'clock (nurse lashawn). MG 3D Diag Mammo W/Cad LT CC, MLO, and XCCL view(s) were taken of the left breast. Prior study comparison: June 21, 2019, bilateral MG 3d diag mammo w/cad [facility]. The breast tissue is heterogeneously dense. This may lower the sensitivity of mammography. 1-2 o'clock palpable marker. Tiny benign oil cyst calcifications. No significant new findings when compared with previous films. These results were verbally communicated with the patient and result sheet given to the patient on 01/01/21. ASSESSMENT: Incomplete: need additional imaging evaluation, BI-RAD 0 RECOMMENDATION: Ultrasound of the left breast. (upper outer quadrant for nurse palpated area)
--- NOTE | 2021-01-01 14:58 | USB ---
Reason for exam: additional evaluation requested from abnormal screening. History: Patient has history of breast cancer at age 48. Family history of breast cancer in aunt. Taking antineoplastic. US Breast Limited LT Technologist: Megan Hooker Left limited breast ultrasound including focal area of concern, retroareolar and axilla demonstrates a 0.4 x 0.3 x 0.3cm cystic benign lesion at 3 o'clock and a 0.3 x 0.4 x 0.2cm lesion too small to characterize at 2 o'clock, possible cyst with debris, 6 month follow up ultrasound recommended. These results were verbally communicated with the patient and result sheet given to the patient on 01/01/21. ASSESSMENT: Probably benign, BI-RAD 3 RECOMMENDATION: Ultrasound of the left breast in 6 months. (2 o'clock)
== END | disposition home or self-care (01) ==
LOC: RADMAMWWP 12:55
PROVIDERS: ATTEND Internal Medicine Hematology & Oncology
DX: R92.8 Other abnormal and inconclusive findings on diagnostic imaging of breast (principal); Z80.3 Family history of malignant neoplasm of breast; Z85.3 Personal history of malignant neoplasm of breast
CPT/HCPCS: 77061; 77065

== ENCOUNTER → 2021-07-07 | Outpatient (CLI) | payer BC ==
--- NOTE | 2021-07-08 09:24 | MM ---
Reason for exam: follow-up at short interval from prior study. Last mammogram was performed 6 months ago. History: Patient is postmenopausal, has history of breast cancer at age 48, and is nulliparous. Family history of breast cancer in aunt. Implant in the right breast, 2020. Mastectomy of the right breast, 2018. Chemotherapy, 2018. Radiation therapy, 2018. Taking antineoplastic beginning at age 50. Physical Findings: Nurse Summary: 1cm nodule in the left breast at 1 o'clock (nurse monik). MG 3D Diag Mammo W/Cad LT CC and MLO view(s) were taken of the left breast. Prior study comparison: January 01, 2021, left breast MG 3d diag mammo w/cad LT. June 21, 2019, bilateral MG 3d diag mammo w/cad [facility]. The breast tissue is extremely dense which could obscure a lesion on mammography. There is no discrete abnormality. These results were verbally communicated with the patient and result sheet given to the patient on 07/07/21. ASSESSMENT: Benign, BI-RAD 2 RECOMMENDATION: Follow-up diagnostic mammogram of the left breast in 6 months. Back on schedule for December 2021.
--- NOTE | 2021-07-08 09:29 | USB ---
Reason for exam: follow-up at short interval from prior study. History: Patient is postmenopausal, has history of breast cancer at age 48, and is nulliparous. Family history of breast cancer in aunt. Implant in the right breast, 2020. Mastectomy of the right breast, 2018. Chemotherapy, 2018. Radiation therapy, 2018. Taking antineoplastic beginning at age 50. US Breast Limited LT Left limited breast ultrasound including focal area of concern, retroareolar and axilla demonstrates a 5 x 3 x 5mm oval, cystic lesion at 3 o'clock, slight increase in size and a 5mm oval, benign, lymph node at the axilla. Scanned 12-3 o'clock. These results were verbally communicated with the patient and result sheet given to the patient on 07/07/21. ASSESSMENT: Benign, BI-RAD 2 RECOMMENDATION: Follow-up diagnostic mammogram of the left breast in 6 months. Back on schedule for December 2021.
== END | disposition home or self-care (01) ==
LOC: RADMAMWWP 14:04
PROVIDERS: ATTEND Internal Medicine Hematology & Oncology
DX: C50.111 Malignant neoplasm of central portion of right female breast (principal)
CPT/HCPCS: 77061; 77065

== ENCOUNTER → 2021-11-09 | Outpatient (CLI) | payer BC ==
--- NOTE | 2021-11-09 08:40 | BD ---
EXAMINATION TYPE: Axial Bone Density DATE OF EXAM: 11/09/2021 COMPARISON: NONE CLINICAL HISTORY: 51 years year old Female. ICD-10 CODE: [id number] POST MENOPAUSAL WITH HRT Height: 57 IN Weight: 88 LBS FRAX RISK QUESTIONS: History of Fracture in Adulthood: LT WRIST AGE 51 Current Tobacco Use: YES RISK FACTORS HISTORY OF: History of Wrist Fracture: LT WRIST AGE 51 Family History of Osteoporosis: YES (M) GRANDMOTHER Active: YES Postmenopausal woman: AGE 47 MEDICATIONS: Additional Medications: EXEMESTANE Additional History: BREAST CANCER WITH CHEMO AND RADIATION EXAM MEASUREMENTS: Bone mineral densitometry was performed using the [facility]. Bone mineral density as measured about the Lumbar spine is: ----- L1-L4(G/cm2): 0.995 T Score Values are as follows: ----- L1: -1.9 ----- L2: -1.4 ----- L3: -1.3 ----- L4: -1.7 ----- L1-L4: -1.5 Bone mineral density BASELINE Bone mineral density about the R hip (g/cm2): 0.729 Bone mineral density about the L hip (g/cm2): 0.705 T Score values are as follows: -----R Neck: -2.2 -----L Neck: -2.4 -----R Total: -1.9 -----L Total: -2.0 Bone mineral density BASELINE FRAX%s: The graph provided illustrates a 12.1 chance for a major osteoporotic fx and a 4.5 chance for the hips probability for fx in 10 years time. IMPRESSION: Osteopenia (T Score between -2.5 and -1). There is slightly increased risk of fracture and the patient may be considered for treatment. Re-Screen 2-5 years. NOTE: T-SCORE=SD OF THE YOUNG ADULT MEAN.
== END | disposition home or self-care (01) ==
LOC: RADBDWWP 08:00
PROVIDERS: ATTEND Internal Medicine Hematology & Oncology
DX: Z03.89 Encounter for observation for other suspected diseases and conditions ruled out (principal); C50.111 Malignant neoplasm of central portion of right female breast
CPT/HCPCS: 77080

== ENCOUNTER → 2023-07-13 | Outpatient (CLI) | payer BC ==
--- NOTE | 2023-07-13 11:25 | MM ---
Reason for Exam: Hx of breast cancer, mastectomy. Last screening mammogram was performed 12 month(s) ago. Patient History: Menarche at age 12. Patient has no children. Postmenopausal. Breast cancer, right, age 48. 2018, Mastectomy on the Right side. 2018, Chemotherapy. 2017, Radiation Therapy. 2020, Implant on the right side. Maternal aunt had breast cancer. Tissue Density: Left: The breast tissue is heterogeneously dense. This may lower the sensitivity of mammography. Findings: Analyzed By CAD. Areas of asymmetric density such as subareolar left MLO view remain unchanged. No significant change from prior exams. Overall Assessment: Benign, BI-RAD 2 Management: Screening Mammogram of the left breast in 1 year. . Results were given to the patient verbally at the time of exam. Patient should continue monthly self-breast exams. A clinical breast exam by your physician is recommended on an annual basis. This exam should not preclude additional follow-up of suspicious palpable abnormalities. Electronically signed and approved by: Lata Howell M.D. Radiologist
== END | disposition home or self-care (01) ==
LOC: RADMAMWWP 10:58
PROVIDERS: ATTEND Internal Medicine Hematology & Oncology
DX: R92.332 Mammographic heterogeneous density, left breast (principal); C50.111 Malignant neoplasm of central portion of right female breast; F41.1 Generalized anxiety disorder; K59.00 Constipation, unspecified; R11.0 Nausea; Z80.3 Family history of malignant neoplasm of breast; Z85.3 Personal history of malignant neoplasm of breast; Z78.0 Asymptomatic menopausal state; Z90.11 Acquired absence of right breast and nipple; Z98.82 Breast implant status
CPT/HCPCS: 77061; 77065

== ENCOUNTER → 2024-08-01 | Outpatient (CLI) | payer BC ==
--- NOTE | 2024-08-01 09:47 | MM ---
Reason for Exam: Screening (asymptomatic). Last mammogram was performed 1 year(s) and 1 month(s) ago. Patient History: Menarche at age 12. Patient has no children. Postmenopausal. Breast cancer, right, age 48. 2018, Mastectomy on the Right side. 2018, Chemotherapy. 2017, Radiation Therapy. 2020, Implant on the right side. Paternal aunt had breast cancer. Prior Study Comparison: 07/07/2021 Left Diagnostic Mammogram, [facility]. 07/12/2022 Left MG 3D diag mammo w/cad LT, [facility]. 07/13/2023 Left MG 3D diag mammo w/cad [facility], [facility]. Tissue Density: Left: The breasts are heterogeneously dense, which may obscure small masses. Findings: Analyzed By CAD. There is no suspicious group of microcalcifications or new suspicious mass in the left breast. Overall Assessment: Benign, BI-RAD 2 Management: Screening Mammogram of the left breast in 1 year. . Patient should continue monthly self-breast exams. A clinical breast exam by your physician is recommended on an annual basis. This exam should not preclude additional follow-up of suspicious palpable abnormalities. Note on Juliet scores and lifetime risk: 1. A Juliet score greater than 3% is considered moderate risk. If this is the case, consider specialist referral to assess eligibility for a risk reducing agent. 2. If overall lifetime risk for the development of breast cancer is 20% or higher, the patient may qualify for future screening with alternating mammogram and breast MRI. [facility], , 08/01/2024 9:44 AM. Electronically signed and approved by: Daniel Pleitez M.D. Radiologis
== END | disposition home or self-care (01) ==
LOC: RADMAMWWP 07:17
PROVIDERS: ATTEND Internal Medicine Hematology & Oncology
DX: Z12.31 Encounter for screening mammogram for malignant neoplasm of breast (principal); R92.332 Mammographic heterogeneous density, left breast; Z78.0 Asymptomatic menopausal state; Z85.3 Personal history of malignant neoplasm of breast; Z80.3 Family history of malignant neoplasm of breast
CPT/HCPCS: 77063; 77067

== ENCOUNTER → 2024-09-25 | Outpatient (CLI) | payer BC ==
--- NOTE | 2024-09-25 09:19 | CT ---
EXAMINATION TYPE: CT abdomen pelvis w con DATE OF EXAM: 09/25/2024 8:53 AM COMPARISON: 11/05/2019 CLINICAL INDICATION: Female, 54 years old with history of C50.111 BREAST CANCER; pain in abdomen x 2 months, h/o breast cancer TECHNIQUE: CT of the abdomen and pelvis after IV contrast. Delayed images through the kidneys and cor onal/sagittal reconstructions performed. Contrast used:100 ml mL of Isovue 300 with IV Contrast Oral contrast used: with Oral Contrast CT DLP: 302.4 mGycm, Automated exposure control for dose reduction was used. FINDINGS: LOWER CHEST: Partially visualized right breast implant. Otherwise, some stringy atelectasis in the gustavo ngs. No pleural effusion. Heart normal size. ABDOMEN LIVER: Unremarkable GALLBLADDER AND BILE DUCTS: Unremarkable. PANCREAS: Unremarkable. SPLEEN: Tiny anterior inferior splenule. ADRENAL GLANDS: Unchanged mild thickening left adrenal gland without discrete nodularity. Right adren al gland within normal limits. KIDNEYS AND URETERS: No evidence of hydronephrosis or renal calculus. The ureters are unremarkable. PELVIS BLADDER: No evidence for wall thickening or mass given limitations of exam. REPRODUCTIVE: Uterus anteverted. Both ovaries are visualized. No abnormal fluid collection in the pel vis. ABDOMEN & PELVIS STOMACH AND BOWEL: Prominent ingested material and contrast distending the stomach. No evidence of nik wel obstruction. Suspect a patulous, contrast and air-filled appendix extending posteriorly in the up per pelvis. Low-lying cecum. Oral contrast material has made it to the mid sigmoid colon. Mild distal stool. No pericolonic inflammatory change seen. PERITONEUM/RETROPERITONEUM: No evidence of pneumoperitoneum or free fluid. VASCULATURE: Mild atherosclerotic calcifications infrarenal abdominal aorta and common iliac arteries . MUSCULOSKELETAL: Mild degenerative changes left SI joint. No acute osseous abnormalities LYMPH NODES: No gross evidence for lymphadenopathy. SOFT TISSUE/ABDOMINAL WALL: Unremarkable IMPRESSION: No acute inflammatory process identified in the abdomen or pelvis to explain the patient's symptoms. Partially visualized right breast prosthesis. [facility], , 09/25/2024 9:16 AM
== END | disposition home or self-care (01) ==
LOC: RADCTMAIN 06:58
PROVIDERS: ATTEND Internal Medicine Hematology & Oncology
DX: C50.111 Malignant neoplasm of central portion of right female breast (principal); F41.1 Generalized anxiety disorder; K59.00 Constipation, unspecified; R11.0 Nausea; Z98.82 Breast implant status
CPT/HCPCS: 74177; Q9967